=== PATIENT | female | born 1960 | race Caucasian/White ===

== ENCOUNTER 2022-01-11 15:08 | Emergency (ER) | payer OTHER ==
[~2022-01-11] VITALS: Ht 162.6 cm; Wt 74.8 kg
--- NOTE | 2022-01-11 15:30 | NUR ---
Dr Gibbs at the bedside for MSE.
[2022-01-11] MEDS ORDERED: TETRACAINE HCL 0.5% OPHT DROP 2 ML BOTTLE OP ONE (15:45)
[2022-01-11] MEDS ORDERED: TONOPEN 1 EA EA MC ONE (15:45)
[2022-01-11] MEDS ORDERED: FLUORESCEIN SODIUM 1 MG STRIP OP ONE (15:45)
[2022-01-11] MEDS ORDERED: FLUORESCEIN SODIUM 1 MG STRIP ONE (15:47)
[2022-01-11] MEDS ORDERED: TETRACAINE HCL 0.5% OPHT DROP 2 ML BOTTLE ONE (15:48)
[2022-01-11] MEDS ORDERED: POLY15DR27 EACHEYE (17:05)
[2022-01-11 17:18] VITALS: BP 113/67
--- NOTE | 2022-01-11 17:18 | NUR ---
Patient discharged to home in stable condition. Written and verbal after care instructions given. Patient verbalizes understanding of instructions. Stressed follow up or return to ER for worsening s/s.
== END 2022-01-11 17:19 | disposition home or self-care (01) ==
LOC: ER 15:08
DX: B30.9 Viral conjunctivitis, unspecified (principal); H57.13 Ocular pain, bilateral; H40.9 Unspecified glaucoma
CPT/HCPCS: A4663